=== PATIENT | female | born 1970 ===

== ENCOUNTER → 2018-09-04 | Outpatient (CLI) | payer OTHER | END | disposition home or self-care (01) | LOC: SONOGRAMA 15:43 | DX: N60.11 Diffuse cystic mastopathy of right breast (principal); N60.12 Diffuse cystic mastopathy of left breast; N61.1 Abscess of the breast and nipple ==

== ENCOUNTER 2020-09-11 14:37 | Outpatient (CLI) | payer OTHER | END 2020-09-11 15:01 | disposition home or self-care (01) | LOC: MAMO-SONO 14:37 | PROVIDERS: ATTEND Surgery | DX: Z12.31 Encounter for screening mammogram for malignant neoplasm of breast (principal); N60.11 Diffuse cystic mastopathy of right breast; N60.12 Diffuse cystic mastopathy of left breast ==